=== PATIENT | male | born 1950 | race Caucasian/White ===

== ENCOUNTER 2019-08-28 11:25 | Emergency (ER) | payer OTHER, MEDICARE ==
[~2019-08-28] VITALS: Ht 170 cm; Wt 83.0 kg
--- OUTSIDE RECORDS SUMMARY | 2019-08-28 11:38 | XMS REPORT | Continuity of Care Document ---
Author Organization Unknown Address Unknown Phone Unavailable Allergies There is no data. Medications There is no data. Problems There is no data. Procedures There is no data. Results There is no data. Encounters ACCT No. Visit Date/Time Discharge Status Pt. Type Provider Facility Loc./Unit Complaint [id number] 07/31/2019 11:20:00 07/31/2019 23:59: 59 [facility]
--- NOTE | 2019-08-28 11:57 | NUR ---
positive pedial and tibial pulses.
--- NOTE | 2019-08-28 11:59 | ED Lower Extremity ---
General Chief Complaint: Lower Extremity Stated Complaint: FALL Source: patient Exam Limitations: no limitations History of Present Illness Date Seen by Provider: Aug 28, 2019 Time Seen by Provider: 11:25 Initial Comments 69-year-old male presents to the emergency room after [facility]. Patient had a tumble this morning and fractured the distal end of his right femur just proximal to the condyles. Patient also had a shoulder injury but this was without fracture and has good range of motion. Patient had no other injuries no head injuries no neck injuries. He has a swelling in the distal thigh consistent with a femur fracture. Patient admits he has a lazy foot on the right side may have tripped over his foot when he was going to work on his yard this morning. Patient has good vascular pulses on his dorsal pedis and posterior tib on the right side. He is developing some swelling leg is elevated and placed in an immobilizer. Patient denies any history of cardiac pulmonary GI or renal disease. He states he has mild hypertension. Patient has given informed consent for diagnostic and therapeutic services. Laboratory evaluation is started IV normal saline has been started. Patient needs to have orthopedic stabilization and care. We do not have an orthopod available through the [facility] system. Patient has asked to be transferred to [facility] and Dr. Salguero was contacted in the emergency room and has accepted the patient has an ER to ER transfer. This is an emergency transfer and we have no other orthopedic availability in the [facility]. Onset: just prior to arrival Severity: moderate Pain/Injury Location: right thigh Method of Injury: fell (onto right knee with immediate pain and swelling) Modifying Factors: Improves With Movement Allergies and Home Medications Patient Home Medication List Home Medication List Reviewed: Yes Review of Systems Constitutional: see HPI, other (pain in the right knee secondary to distal femur fracture) EENTM: see HPI, no symptoms reported Respiratory: no symptoms reported Cardiovascular: no symptoms reported Gastrointestinal: no symptoms reported Genitourinary: no symptoms reported Musculoskeletal: joint pain (right knee secondary to fracture), joint swelling Skin: no symptoms reported (swelling of the right knee secondary to fracture), other (some discoloration from trophic changes in his lower leg areas with desquamation) Psychiatric/Neurological: No Symptoms Reported, Anxiety Past Mhghdqv-Myoxeq-Elkcem Hx Past Med/Social Hx: Reviewed Nursing Past Med/Soc Hx Patient Social History Alcohol Use: Rarely Uses Recreational Drug Use: No Smoking Status: Never a Smoker Recent Foreign Travel: No Contact w/Someone Who Travel: No Recent Infectious Disease Expo: No Recent Hopitalizations: No Seasonal Allergies Seasonal Allergies: No Past Medical History Surgeries: No Respiratory: No Currently Using CPAP: No Cardiac: No Hypertension Neurological: No Reproductive Disorders: No Genitourinary: No Gastrointestinal: No Musculoskeletal: Yes (patient is having a lazy right foot possibly indicating a minimal drop and ) Endocrine: No Are Your Blood Sugars Over 250: No HEENT: No Loss of Vision: Denies Hearing Impairment: Hard of Hearing Cancer: No Did You Recieve Any Treatments: No Psychosocial: No Integumentary: No (has some desquamation his anterior right leg) Physical Exam Vital Signs Capillary Refill : Less than 1 second Height, Weight, BMI Height: '" Weight: lbs. oz. kg; BMI Method: General Appearance: WD/WN, moderate distress HEENT: PERRL/EOMI, normal ENT inspection (hard of hearing), pharynx normal Neck: non-tender, full range of motion, supple, normal inspection Cardiovascular: regular rate, rhythm, no edema, no gallop, no JVD, no murmur Respiratory: chest non-tender, lungs clear, normal breath sounds, no respiratory distress, no accessory muscle use Gastrointestinal: normal bowel sounds, non tender, soft, no organomegaly, no pulsatile mass Back: normal inspection, no CVA tenderness, no vertebral tenderness Hips: bilateral hip non-tender, bilateral hip normal inspection, bilateral hip normal range of motion (right hip appears normal full range of motion was not t ested because a femur fracture) Legs: bilateral leg non-tender, bilateral leg normal inspection, bilateral leg normal range of motion, bilateral leg no evidence of injury Knees: left knee non-tender, left knee normal inspection, left knee normal range of motion, left knee no evidence of injury; right knee bone tenderness, right knee deformity, right knee joint effusion, right knee soft tissue tenderness (secondary to fractured distal femur right) Ankles: bilateral ankle non-tender, bilateral ankle normal inspection, bilateral ankle normal range of motion, bilateral ankle no evidence of injury Feet: bilateral foot non-tender, bilateral foot normal inspection, bilateral foot normal range of motion, bilateral foot no evidence of injury Reflexes: 0 knee (R); 2+ knee (L) 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, no motor/sensory deficits, alert, normal mood/affect, oriented x 3 Skin: normal color, warm/dry Progress/Results/Core Measures Results/Orders My Orders Orders - TOBI RIVERS DO Cbc And Manual Diff (08/28/19 11:46) Comprehensive Metabolic Panel (08/28/19 11:46) Urinalysis (08/28/19 11:46) Protime With Inr (08/28/19 11:46) Partial Thromboplastin Time (08/28/19 11:46) Chest 1 View Ap/Pa Only (08/28/19 11:46) Peripheral Iv Line Care 00,04,08,12,16,20 (08/28/19 11:46) Ekg Tracing (08/28/19 11:46) Nothing By Mouth (08/28/19 Dinner) Departure Impression Primary Impression: Fracture of femur Disposition: ADMITTED INPATIENT Condition: Improved (immobilizer applied right femur fracture she has received hydromorphone 1 mg IV) Admissions Decision to Admit Reason: Admit from ER (Trauma) Decision to Admit/Date: Aug 28, 2019 Time/Decision to Admit Time: 12:13 Transfer Transfer Reason: Exceeds level of care Time Spoke to Accepting Phy: 11:50 Transfer Progress Notes Patient with fractured right distal femur unstable and we have no orthopedic coverage at the [facility]. Patient is being transferred to the [facility] Dr. Salguero has accepted the patient. Patient understands and need for orthopedic care and probable internal fixation. Transfer Time: 12:14 Transfer Facility: [facility] Method of Transfer: EMS Departure-Patient Inst. Referrals: TRI BUSBY APRN (PCP/Family) Primary Care Physician Patient Instructions: Femur Fracture TOBI RIVERS DO Aug 28, 2019 11:59
[2019-08-28] MEDS ORDERED: HYDROmorphone 2 MG/ML VIAL (DILAUDID) IV ONE (12:00)
--- NOTE | 2019-08-28 12:05 | Diagnostic Imaging Report ---
Indication: Femur fracture. Findings: Lungs are clear. The heart and vessels normal. There is no effusion or pneumothorax. Impression: No acute-appearing abnormality. Dictated by: Dictated on workstation # [id number]
--- NOTE | 2019-08-28 12:06 | NUR ---
Patient report given to aMrina Lagos RN [facility].
[2019-08-28 12:14] LABS: HEMOGLOBIN 12.6 G/DL (13.3-17.7); MEAN CORPUSCULAR HEMOGLOBIN 34 PG (25-34); WHITE BLOOD COUNT 4.1 10^3/uL (4.3-11.0)
[2019-08-28 12:15] LABS: BASOPHILS % (AUTO) 0 % (0-10); EOSINOPHILS # (AUTO) 0.1 10^3/uL (0.0-0.3); EOSINOPHILS % (AUTO) 2 % (0-10); HEMATOCRIT 38 % (40-54); LYMPHOCYTES # (AUTO) 0.9 X 10^3 (1.0-4.0); LYMPHOCYTES % (AUTO) 21 % (12-44); MEAN CORPUSCULAR HGB CONC 33 G/DL (32-36); MEAN CORPUSCULAR VOLUME 103 FL (80-99); MONOCYTES # (AUTO) 0.3 X 10^3 (0.0-1.0); MONOCYTES % (AUTO) 8 % (0-12); NEUTROPHILS # (AUTO) 2.8 X 10^3 (1.8-7.8); NEUTROPHILS % (AUTO) 69 % (42-75); PLATELET COUNT 205 10^3/uL (130-400); RED CELL DISTRIBUTION WIDTH 13.2 % (10.0-14.5)
[2019-08-28 12:27] LABS: BAND NEUTROPHILS 2 %; BASOPHILS % (MANUAL) 0 %; CHLORIDE 101 MMOL/L (98-107); EOSINOPHILS % (MANUAL) 4 %; LYMPHOCYTES % (MANUAL) 20 %; MONOCYTES % (MANUAL) 2 %; NEUTROPHILS % (MANUAL) 72 %; POTASSIUM 4.6 MMOL/L (3.6-5.0); SODIUM 138 MMOL/L (135-145)
[2019-08-28 12:28] LABS: ALANINE AMINOTRANSFERASE 25 U/L (0-55); ALBUMIN 3.9 GM/DL (3.2-4.5); ALKALINE PHOSPHATASE 66 U/L (40-136); BILIRUBIN,TOTAL 0.3 MG/DL (0.1-1.0); BUN/CREATININE RATIO 18; CARBON DIOXIDE 25 MMOL/L (21-32); CREATININE SERUM 1.05 MG/DL (0.60-1.30); GFR ESTIMATED > 60; GLUCOSE 129 MG/DL (70-105); TOTAL PROTEIN 6.7 GM/DL (6.4-8.2)
[2019-08-28 12:30] LABS: INR 0.9 (0.8-1.4)
[2019-08-28 12:40] VITALS: BP 104/58
== END 2019-08-28 12:45 | disposition short-term general hospital (02) ==
LOC: EDUNIT# 11:25 → ER FS 11:33
DX: S72.401A Unspecified fracture of lower end of right femur, initial encounter for closed fracture (principal); I10 Essential (primary) hypertension; W18.09XA Striking against other object with subsequent fall, initial encounter; Y92.096 Garden or yard of other non-institutional residence as the place of occurrence of the external cause
CPT/HCPCS: 36415; 71045; 80053; 85007; 85027; 85610; 85730; 96374

== ENCOUNTER → 2019-08-28 | Outpatient (CLI) | payer MEDICARE, OTHER ==
--- NOTE | 2019-08-28 11:47 | Diagnostic Imaging Report ---
INDICATION: Fall. FINDINGS: 2 views right shoulder. There is a nondisplaced fracture along the cortex of the humeral tuberosity. Humeral head is in normal articulation with the glenoid. Articulating surfaces are smooth in appearance on 2 views. Scapular Y view shows no scapular fracture. IMPRESSION: Findings are suggestive of a small nondisplaced fracture along the humeral tuberosity. Would consider shoulder series or a CT scan. Dictated by: Dictated on workstation # [id number]
--- NOTE | 2019-08-28 11:48 | Diagnostic Imaging Report ---
INDICATION: Fall. Right knee pain. FINDINGS: 3 views. There is a mildly comminuted fracture along the metaphysis of the right femur. There is mild impaction and angulation. The femoral condyles appear intact. The joint space with the tibial plateau shows good alignment. There is considerable degenerative change especially along the medial compartment. There is question of a small cortical irregularity along the medial aspect of the medial femoral condyle. IMPRESSION: 1. Acute fracture of the metaphysis of the right femur as described. 2. Degenerative changes with questionable small cortical defect along the articulating surface of the medial femoral condyle. Dictated by: Dictated on workstation # [id number]
== END ==
LOC: RAD FS 10:51
PROVIDERS: ATTEND Nurse Practitioner Family
DX: S72.401A Unspecified fracture of lower end of right femur, initial encounter for closed fracture (principal); M25.611 Stiffness of right shoulder, not elsewhere classified; W19.XXXA Unspecified fall, initial encounter
CPT/HCPCS: 73030; 73562